=== PATIENT | male | born 1990 | race African-American/Black ===

== ENCOUNTER 2020-05-12 04:11 | Emergency (ER) | payer OTHER ==
[~2020-05-12] VITALS: Ht 180.3 cm; Wt 75.0 kg
[2020-05-12] MEDS ORDERED: IBUPROFEN 600 MG TABLET PO ONE (04:45)
[2020-05-12] MEDS ORDERED: PERTUSS(ACELL),DIPH,TET VAC/PF 0.5 ML VIAL IM ONE (04:45)
[2020-05-12] MEDS ORDERED: ACETAMINOPHEN 500 MG TABLET PO ONE (04:45)
[2020-05-12 05:21] VITALS: BP 129/66
== END 2020-05-12 07:17 | disposition home or self-care (01) ==
LOC: EMS 04:11
DX: S52.571A Other intraarticular fracture of lower end of right radius, initial encounter for closed fracture (principal); S00.83XA Contusion of other part of head, initial encounter; S00.512A Abrasion of oral cavity, initial encounter; H61.21 Impacted cerumen, right ear; Y04.2XXA Assault by strike against or bumped into by another person, initial encounter; Y93.89 Activity, other specified; Y92.89 Other specified places as the place of occurrence of the external cause; Y99.8 Other external cause status
CPT/HCPCS: 70486; 90471; 90715